=== PATIENT | female | born 1945 | race Caucasian/White ===

== ENCOUNTER 2017-02-20 11:28 | Emergency (ER) | payer MEDICARE, MEDICAID ==
[2017-02-20 11:38] VITALS: BMI 31.6
[2017-02-20 11:39] VITALS: RESP 18; TEMP 97.9
--- NOTE | 2017-02-20 13:04 | ED PDOC ---
Arrival/HPI - General Chief Complaint: Abnormal Skin Integrity Time Seen by Provider: 02/20/17 12:16 Historian: Patient - History of Present Illness Narrative History of Present Illness (Text): 02/20/17 13:04 A 72 year old female presents to the emergency department s/p trip and mechanical fall yesterday. Patient reports she fell on her knees, but denies any knee pain, head injury or head trauma. Patient is ambulating without pain or discomfort. Patient is concerned because of small red blister to right lópez. Denies any other complaints at this time. Symptom Onset: Sudden Symptom Course: Unchanged Activities at Onset: Light Context: Home Past Medical History - Provider Review Nursing Documentation Reviewed: Yes - Infectious Disease Hx of Infectious Diseases: None - Cardiac Hx Congestive Heart Failure: Yes Hx Hypertension: Yes - Pulmonary Hx Respiratory Disorders: Yes Hx Bronchitis: Yes - Neurological Hx Neurological Disorder: No - HEENT Hx HEENT Disorder: Yes Hx Blind: Yes (L prosthetic eye) Hx Cataracts: Yes (RIGHT) - Renal Hx Renal Disorder: Yes (BLADDER TUMOR. 05-13-13 CYSTOSCOPY DONE-TUR OF BLADDER TUMOR) - Endocrine/Metabolic Hx Endocrine Disorders: No - Hematological/Oncological Hx Blood Disorders: Yes Hx Anemia: Yes - Integumentary Hx Dermatological Disorder: Yes Hx Psoriasis: Yes (sherly lower extremities) - Musculoskeletal/Rheumatological Hx Musculoskeletal Disorders: No - Gastrointestinal Hx Gastrointestinal Disorders: Yes Hx Gastroesophageal Reflux: Yes - Genitourinary/Gynecological Hx Genitourinary Disorders: Yes (URGENCY) Hx Bladder Cancer: Yes Hx Hematuria: Yes - Psychiatric Hx Psychophysiologic Disorder: Yes Hx Anxiety: Yes Hx Depression: Yes Hx Substance Use: No - Past Surgical History Past Surgical History: No Previous - Surgical History Hx Coronary Stent: Yes - Anesthesia Hx Anesthesia: Yes Hx Anesthesia Reactions: No Hx Malignant Hyperthermia: No - Suicidal Assessment Feels Threatened In Home Enviroment: No Family/Social History - Physician Review Nursing Documentation Reviewed: Yes Family/Social History: No Known Family HX Smoking Status: Never Smoked Hx Alcohol Use: No Hx Substance Use: No Hx Substance Use Treatment: No Allergies/Home Meds Allergies/Adverse Reactions: Allergies No Known Allergies Allergy (Verified 02/08/16 10:20) Home Medications: Home Meds Medication Instructions Recorded Confirmed Atorvastatin [Lipitor] 1 tab PO HS 02/20/17 02/20/17 Furosemide [Lasix] 1 tab PO DAILY 02/20/17 02/20/17 Hydroxyzine HCl [Hydroxyzine HCl] 1 tab PO DAILY 02/20/17 02/20/17 Multivitamin [Multivitamins] 1 tab PO DAILY 02/20/17 02/20/17 Review of Systems - Physician Review All systems were reviewed & negative as marked: Yes Physical Exam - Physical Exam Narrative Physical Exam (Text): 02/20/17 13:05 - Review of Systems Constitutional: Normal. absent: Fatigue, Weight Change, Fevers Eyes: Normal ENT: Normal Respiratory: Normal absent: SOB, Cough, Sputum Cardiovascular: Normal absent: Chest pain, Palpitations, Syncope Gastrointestinal: Normal absent: Abdominal pain, Diarrhea, Nausea, Vomiting Genitourinary: Normal. absent: Dysuria, Frequency, Hematuria Musculoskeletal: Normal. absent: Arthralgias, Back Pain, Neck Pain, knee pain Skin: right lópez small red blister Neurological: Normal absent: Focal Weakness Endocrine: Normal Hemo/Lymphatic: Normal Psychiatric: Normal - Physical exam Patient appears age appropriate, speaking full sentences without difficulty Head atraumatic. No nasal bone deformity or tenderness, no facial or jaw pain/ swelling. No neck midline tenderness, thoracic and lumbar spine with no midline tenderness. Pt moving b/l upper and lower extremities without difficulty, 5/5 strength, with full active and passive ROM. Distal neurovasc fully intact. Small fluid filled blister on lower right lópez. Abd soft/nt/ng, no hematomas, no peritoneal signs. Neg. pelvic rock. - Systems Exam Head: Present: Atraumatic, Normocephalic Mouth: Present: Moist Mucous Membranes Neck: Present: Normal Range of Motion. No: MIDLINE TENDERNESS, Paraspinal Tenderness Respiratory/Chest: Present: Clear to Auscultation, Good Air Exchange. No: Respiratory Distress, Accessory Muscle Use, Tachypnic Cardiovascular: Present: Regular Rate and Rhythm, Normal S1, S2, Peripheral Pulses Present. No: Murmurs Abdomen: Present: Normal Bowel Sounds, No: Tenderness, Peritoneal Signs, Rebound, Guarding, Distention Back: Present: Normal Inspection. No: Midline Tenderness, Paraspinal Tenderness Upper Extremity: Present: Normal Inspection. No: Cyanosis, Edema Lower Extremity: Present: Normal Inspection. No: Edema Neurological: Present: GCS=15, Speech Normal, cranial nerves II through XII fully intact with no cerebellar abnormality, neuro-sensory fully intact. No focal neurological deficits. Skin: Present: small fluid filled blister lower right lópez No: Rashes Lymphatic: Present: OX3, NI, NC Psychiatric: Present: Alert, Oriented x 3, Normal Insight, Normal Concentration Vital Signs Reviewed: Yes Vital Signs Temp Pulse Resp BP Pulse Ox 02/20/17 13:52 65 18 123/71 98 02/20/17 13:40 60 18 125/80 99 02/20/17 12:38 67 18 125/75 97 02/20/17 11:39 97.9 F 69 18 127/81 97 Temperature: Afebrile Blood Pressure: Normal Pulse: Regular Respiratory Rate: Normal Appearance: Positive for: Well-Appearing, Non-Toxic, Comfortable Pain Distress: None Mental Status: Positive for: Alert and Oriented X 3 Medical Decision Making ED Course and Treatment: 02/20/17 12:47 Impression: A 72 year old female s/p mechanical fall. small fluid filled blister lower right lópez pt states she sustained a fall yesterday. denies head pain or hear injury, denies BLACK. No focal neurological deficits on examination. pt ambulates without difficulty Plan: -- Radiology b/l knees -- Reassess and disposition Prior Visits: Notes and results from previous visits were reviewed. Patient was last seen in the emergency department on 02/08/16 for evaluation of left 4th finger injury. Progress Notes: no acute fractures or dislocations on b/l knee xrays as per radiologist had an extensive d/w pt that although xrays are negative for any acute bony abnormality, it is still very important to fu with pmd and ortho specialist for further w/u and testing such as MRI to r/o any ligamentous/tendenous/meniscal injury. Pt verbalized full understanding of above discussion. Pt states she understands to return to the ER right away for new or worsening symptoms or for inability to f/u with PMD or specialist as instructed. Patient states that she fully agrees with and understands discharge instructions. States that she agrees with the plan and disposition. Verbalized and repeated discharge instructions and plan. I have given the patient opportunity to ask any additional questions. - RAD Interpretation Radiology Orders: 02/20/17 12:41 KNEES BILATERAL [RAD] Stat - Scribe Statement The provider has reviewed the documentation as recorded by the Kennedy Izquierdo Provider Scribe Attestation: All medical record entries made by the Scribe were at my direction and personally dictated by me. I have reviewed the chart and agree that the record accurately reflects my personal performance of the history, physical exam, medical decision making, and the department course for this patient. I have also personally directed, reviewed, and agree with the discharge instructions and disposition. Disposition/Present on Arrival - Present on Arrival Any Indicators Present on Arrival: No History of DVT/PE: No History of Uncontrolled Diabetes: No Urinary Catheter: No History of Decub. Ulcer: No History Surgical Site Infection Following: None - Disposition Have Diagnosis and Disposition been Completed?: Yes Diagnosis: Fall Disposition: HOME/ ROUTINE Disposition Time: 13:26 Patient Plan: Discharge Condition: GOOD Discharge Instructions (ExitCare): Fall Prevention for Older Adults (ED), [place] (ED) Additional Instructions: PLEASE RETURN TO THE EMERGENCY DEPARTMENT FOR NEW OR WORSENING SYMPTOMS. RETURN RIGHT AWAY IF YOU CANNOT FOLLOW UP WITH YOUR PRIMARY CARE DOCTOR, CLINIC, OR SPECIALIST IN 1-2 DAYS. Referrals: Jose Sandoval [Primary Care Provider] - Follow up with primary
--- NOTE | 2017-02-20 13:24 | RAD ---
PROCEDURE: Bilateral Knee Radiographs. HISTORY: Fall COMPARISON: None. FINDINGS: BONES: There is no acute displaced fracture or bone destruction. Bone alignment is normal. There is diffuse bone demineralization. 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 SOFT TISSUES: The periarticular soft tissues are normal. JOINT EFFUSION: There is a small left suprapatellar joint effusion. OTHER FINDINGS: None. IMPRESSION: No acute displaced fracture or dislocation.
[2017-02-20 13:52] VITALS: BP 123/71; PULSE 65; O2SAT 98
== END 2017-02-20 13:52 | disposition home or self-care (01) ==
LOC: ED 11:28
DX: Z03.89 Encounter for observation for other suspected diseases and conditions ruled out (principal); W19.XXXA Unspecified fall, initial encounter; I10 Essential (primary) hypertension

== ENCOUNTER 2017-04-03 10:21 | Emergency (ER) | payer MEDICARE, MEDICAID ==
[2017-04-03 10:38] VITALS: BMI 31.5
[2017-04-03 10:44] VITALS: BP 120/78; PULSE 73; RESP 17; TEMP 98.1; O2SAT 98
--- NOTE | 2017-04-03 11:32 | ED PDOC ---
Arrival/HPI - General Chief Complaint: Abnormal Skin Integrity Time Seen by Provider: 04/03/17 11:11 Historian: Patient - History of Present Illness Narrative History of Present Illness (Text): 04/03/17 11:32 A 72 year old female, presents to the emergency department complaining of an ulcerative wound to her left lower extremity. History obtained through scribe who translated for patient. Patient reports she was seen more than 1 month ago for a blister, which has since popped. She states the wound has been slowly healing. Patient denies any fever, chills, nausea or any other complaints. PMD: Dr. Sandoval Time/Duration: > month Symptom Course: Unchanged Quality: Other Context: Home Past Medical History - Provider Review Nursing Documentation Reviewed: Yes - Infectious Disease Hx of Infectious Diseases: None - Cardiac Hx Cardiac Disorders: Yes Hx Congestive Heart Failure: Yes Hx Hypertension: Yes - Pulmonary Hx Respiratory Disorders: Yes Hx Bronchitis: Yes - Neurological Hx Neurological Disorder: No - HEENT Hx HEENT Disorder: Yes Hx Blind: Yes (L prosthetic eye) Hx Cataracts: Yes (RIGHT) - Renal Hx Renal Disorder: Yes (BLADDER TUMOR. 05-13-13 CYSTOSCOPY DONE-TUR OF BLADDER TUMOR) - Endocrine/Metabolic Hx Endocrine Disorders: No - Hematological/Oncological Hx Blood Disorders: Yes Hx Anemia: Yes Hx Blood Transfusions: No - Integumentary Hx Dermatological Disorder: Yes Hx Psoriasis: Yes (sherly lower extremities) - Musculoskeletal/Rheumatological Hx Musculoskeletal Disorders: No - Gastrointestinal Hx Gastrointestinal Disorders: Yes Hx Gastroesophageal Reflux: Yes - Genitourinary/Gynecological Hx Genitourinary Disorders: Yes (URGENCY) Hx Bladder Cancer: Yes Hx Hematuria: Yes Other/Comment: nephrostomy - Psychiatric Hx Psychophysiologic Disorder: Yes Hx Anxiety: Yes Hx Depression: Yes Hx Substance Use: No - Past Surgical History Past Surgical History: No Previous - Surgical History Hx Cardiac Catheterization: Yes (possible stents) Hx Coronary Stent: Yes Other/Comment: nephrostomy - Anesthesia Hx Anesthesia: Yes Hx Anesthesia Reactions: No Hx Malignant Hyperthermia: No - Suicidal Assessment Feels Threatened In Home Enviroment: No Family/Social History - Physician Review Nursing Documentation Reviewed: Yes Family/Social History: No Known Family HX Smoking Status: Never Smoked Hx Alcohol Use: No Hx Substance Use: No Hx Substance Use Treatment: No Allergies/Home Meds Allergies/Adverse Reactions: Allergies No Known Allergies Allergy (Verified 04/03/17 10:37) Home Medications: Home Meds Medication Instructions Recorded Confirmed Atorvastatin [Lipitor] 1 tab PO HS 02/20/17 04/03/17 Furosemide [Lasix] 1 tab PO DAILY 02/20/17 04/03/17 Hydroxyzine HCl [Hydroxyzine HCl] 1 tab PO DAILY 02/20/17 04/03/17 Multivitamin [Multivitamins] 1 tab PO DAILY 02/20/17 04/03/17 Losartan [Cozaar] 25 mg PO DAILY 04/03/17 04/03/17 Montelukast [Singulair] 1 tab PO DAILY 04/03/17 04/03/17 Physical Exam - Physical Exam Narrative Physical Exam (Text): - Review of Systems Constitutional: Normal. absent: Fatigue, Weight Change, Fevers Eyes: Normal ENT: Normal Respiratory: Normal absent: SOB, Cough, Sputum Cardiovascular: Normal absent: Chest pain, Palpitations, Syncope Gastrointestinal: Normal absent: Abdominal pain, Diarrhea, Nausea, Vomiting Genitourinary: Normal. absent: Dysuria, Frequency, Hematuria Musculoskeletal: Normal. absent: Arthralgias, Back Pain, Neck Pain Skin: (+) Ulcerative wound to left lower extremity Neurological: Normal absent: Focal Weakness Endocrine: Normal Hemo/Lymphatic: Normal Psychiatric: Normal - Physical exam Patient appears age appropriate, speaking full sentences without difficulty - Systems Exam Head: Present: Atraumatic, Normocephalic Pupils: Present: PERRL Extraocular Muscles: Present: EOMI Conjunctiva: Present: Normal Mouth: Present: Moist Mucous Membranes Neck: Present: Normal Range of Motion. No: MIDLINE TENDERNESS, Paraspinal Tenderness Respiratory/Chest: Present: Clear to Auscultation, Good Air Exchange. No: Respiratory Distress, Accessory Muscle Use, Tachypnic Cardiovascular: Present: Regular Rate and Rhythm, Normal S1, S2, Peripheral Pulses Present. No: Murmurs Abdomen: Present: Normal Bowel Sounds, No: Tenderness, Peritoneal Signs, Rebound, Guarding, Distention Back: Present: Normal Inspection. No: Midline Tenderness, Paraspinal Tenderness Upper Extremity: Present: Normal Inspection. No: Cyanosis, Edema Lower Extremity: Present: Normal Inspection. No: Edema Neurological: Present: GCS=15, Speech Normal, cranial nerves II through XII fully intact with no cerebellar abnormality, neuro-sensory fully intact. No focal neurological deficits. Skin: Present: Warm, Dry, 2 cm ulceration, no surrounding erythema or cellulitis , no drainage, appears well-healing No: Rashes Lymphatic: Present: OX3, NI, NC Psychiatric: Present: Alert, Oriented x 3, Normal Insight, Normal Concentration Vital Signs Reviewed: Yes Vital Signs Temp Pulse Resp BP Pulse Ox 04/03/17 10:42 98.1 F 73 17 120/78 98 Temperature: Afebrile Blood Pressure: Normal Pulse: Regular Respiratory Rate: Normal Appearance: Positive for: Well-Appearing, Non-Toxic, Comfortable Pain Distress: None Mental Status: Positive for: Alert and Oriented X 3 Medical Decision Making ED Course and Treatment: 04/03/17 11:31 Impression: A 72 year old female with small ulcerative wound to left lower extremity. On exam, well healed, no surrounding erythema or cellulites, no drainage. Prior Visits: Notes and results from previous visits were reviewed. Patient last seen in the ED on 02/20/17 after a mechanical fall. Patient was also evaluated for a blister ion her left lópez. Progress Notes: Patient instructed to continue to apply topical antibiotic. Will provide non- stick dressing. 04/03/17 11:[address] Sandoval, who states he will see patient outpatient. Patient was referred to step down specialist Dr. Alfonso. Call placed to Dr. Alfonso, no answer but a message was left. 04/03/17 11:55 Spoke with [facility] and made an appointment for 9:00 am the following Sunday. They asked for patient to go to registration and register prior to appointment. Message relayed to patient and family, who expressed understanding. Pt states she understands to return to the ER right away for new or worsening symptoms or for inability to f/u with PMD or specialist as instructed. Patient states that she fully agrees with and understands discharge instructions. States that she agrees with the plan and disposition. Verbalized and repeated discharge instructions and plan. I have given the patient opportunity to ask any additional questions. Disposition/Present on Arrival - Present on Arrival Any Indicators Present on Arrival: No History of DVT/PE: No History of Uncontrolled Diabetes: No Urinary Catheter: No History of Decub. Ulcer: No History Surgical Site Infection Following: None - Disposition Have Diagnosis and Disposition been Completed?: Yes Diagnosis: Ulcer Disposition: HOME/ ROUTINE Disposition Time: 11:38 Patient Plan: Discharge Condition: GOOD Discharge Instructions (ExitCare): Acute Wound Care (ED), Pressure Ulcer (ED) Additional Instructions: PLEASE RETURN TO THE EMERGENCY DEPARTMENT FOR NEW OR WORSENING SYMPTOMS. RETURN RIGHT AWAY IF YOU CANNOT FOLLOW UP WITH YOUR PRIMARY CARE DOCTOR, CLINIC, OR SPECIALIST IN 1-2 DAYS. PLEASE APPLY ANTIBIOTIC OINTMENT TWICE A DAY FOLLOW UP WITH WOUND CARE CLINIC AND DR. ALFONSO Referrals: Jose Sandoval [Primary Care Provider] - Follow up with primary Kayleigh Alfonso DPM [Staff Provider] - Follow up with primary [facility] [Outside] - Follow up with primary [facility] [Outside] - Follow up with primary Forms: [employer] (Martiniquais)
== END 2017-04-03 12:15 | disposition home or self-care (01) ==
LOC: ED 10:21
DX: L97.929 Non-pressure chronic ulcer of unspecified part of left lower leg with unspecified severity (principal)